=== PATIENT | female | born 1960 | race Caucasian/White ===

== ENCOUNTER 2023-03-02 06:16 | Day surgery (SDC) | payer OTHER, MEDICARE ==
[2023-03-02 06:51] VITALS: BMI 30.9
[2023-03-02] MEDS ORDERED: MIDAZOLAM HCL 2 MG/2 ML SINGLE DOSE VIAL ONE ×2 (07:22→07:43)
[2023-03-02] MEDS ORDERED: FENTANYL CITRATE/PF 50 MCG/ML VIAL ONE (07:23)
[2023-03-02] MEDS ORDERED: ROPIVACAINE HCL 0.5% 30ML VIAL ONE (07:23)
[2023-03-02] MEDS ORDERED: PROPOFOL 60 ML ONE (07:40)
[2023-03-02] MEDS ORDERED: ceFAZolin SODIUM 1 GM VIAL ONE (08:13)
[2023-03-02] MEDS ORDERED: ONDANSETRON 4 MG/2 ML VIAL ONE (08:13)
[2023-03-02] MEDS ORDERED: KETOROLAC TROMETHAMINE 30 MG/1 ML VIAL ONE (08:13)
[2023-03-02] MEDS ORDERED: PROPOFOL 20 ML ONE (08:14)
[2023-03-02] MEDS ORDERED: ONDANSETRON 4 MG/2 ML VIAL IVPUSH PRN (08:53)
[2023-03-02] MEDS ORDERED: ACETAMINOPHEN 1000 MG/100 ML BAG IVPB ONE (08:53)
[2023-03-02] MEDS ORDERED: LACTATED RINGERS SOLUTION 1,000 ML IV SCH (09:00)
[2023-03-02 10:04] VITALS: PULSE 84; RESP 18; TEMP 97.6
[2023-03-02 11:27] VITALS: BP 138/74
== END 2023-03-02 11:10 | disposition home or self-care (01) ==
LOC: FASU 06:16
PROVIDERS: ATTEND Orthopaedic Surgery
PROC: 0PSJ04Z Reposition Left Radius with Internal Fixation Device, Open Approach (ICD-10-PCS; principal; 2023-03-02 08:02)
DX: S52.542A Smith's fracture of left radius, initial encounter for closed fracture (principal); W19.XXXA Unspecified fall, initial encounter; Y93.9 Activity, unspecified; Y92.9 Unspecified place or not applicable
CPT/HCPCS: 25609; C1713; 94760